=== PATIENT | female | born 1940 ===

== ENCOUNTER → 2018-01-17 | Outpatient (REF) ==
[2018-01-17 13:09] LABS: HEMOGLOBIN 11.4 g/dl (12.5-16.0)
[2018-01-17 13:10] LABS: HEMATOCRIT 34.2 % (37.0-47.0)
[2018-01-17 13:23] LABS: CALCIUM 9.3 mg/dL (8.4-10.2); CREATININE, serum 0.99 mg/dL (0.52-1.25)
== END ==
LOC: ZCOL.LAB 13:05
PROVIDERS: Internal Medicine
DX: I11.0 Hypertensive heart disease with heart failure (principal); D64.9 Anemia, unspecified